=== PATIENT | female | born 1990 | race Caucasian/White ===

== ENCOUNTER 2024-09-15 08:02 | Inpatient (IN) ==
[2024-09-15] MEDS ORDERED: LIDOCAINE 1% LOCAL 20 ML VIAL INFIL PRN (08:42)
[2024-09-15 09:25] LABS: Hematocrit (blood only) 34.5 % (37.0-47.0); Hemoglobin 11.7 g/dl (12.0-16.0); Mean Corpuscular Hgb Conc 33.9 g/dL (32.0-36.0); Mean Corpuscular Volume 94.3 fL (80.0-100.0); Mean Platelet Volume 10.8 fL (9.4-12.4); Platelet Count 137 K/uL (130-400); RDW Coefficient of Variation 13.3 % (11.5-14.5); Red Blood Count 3.66 M/uL (4.20-5.40); White Blood Count 12.02 K/ul (4.8-10.8)
[2024-09-15] MEDS: LACTATED RINGER'S 1,000 ML IV SCH (11:28)
[2024-09-15] MEDS ORDERED: PROMETHAZINE 6.25 MG/50.25 ML BAG IV PRN (12:10)
[2024-09-15] MEDS ORDERED: ONDANSETRON INJ 2 MG/ML 2 ML VIAL IV PRN (12:10)
[2024-09-15] MEDS ORDERED: fentaNYL citrate PF 100 MCG/2 ML VIAL EPI PRN (12:10)
[2024-09-15] MEDS ORDERED: fentaNYL citrate PF 100 MCG/2 ML VIAL EPI STA (12:10)
[2024-09-15] MEDS ORDERED: NALOXONE HCL 0.4 MG/1 ML VIAL/CARP IV PRN (12:10)
[2024-09-15] MEDS ORDERED: fentANYL 2 MCG/ML BUPIVacaine 0.125%-NSS 100ML BAG EPI PRN (12:10)
[2024-09-15] MEDS ORDERED: BUPIVACAINE 0.25% PF 30 ML VIAL EPI PRN (12:10)
[2024-09-15] MEDS ORDERED: BUPIVACAINE 0.25% PF 30 ML VIAL EPI STA (12:10)
[2024-09-15] MEDS ORDERED: SODIUM CHLORIDE 0.9% PF INJ 10 ML VIAL EPI STA (12:10)
[2024-09-15] MEDS ORDERED: ePHEDrine sulfate 50 MG/ML AMP IV PRN (12:10)
[2024-09-15] MEDS ORDERED: NALOXONE HCL 1 MG in SODIUM CHLORIDE 0.9% 1,000 ML IV PRN (12:10)
[2024-09-15] MEDS ORDERED: NALBUPHINE HCL INJ 10 MG/ML AMP IV PRN (12:10)
[2024-09-15] MEDS ORDERED: LIDOCAINE 2%/EPINEPHRINE 1:200,000 20 ML PF EPI STA (12:10)
[2024-09-15] MEDS ORDERED: ROPIVACAINE 0.5% PF 5 MG/ML 20 ML VIAL EPI PRN (12:10)
[2024-09-15] MEDS ORDERED: LIDOCAINE 2% MPF LOCAL 5 ML VIAL EPI PRN (12:10)
[2024-09-15] MEDS ORDERED: SODIUM CHLORIDE 0.9% PF INJ 10 ML VIAL EPI PRN (12:10)
[2024-09-15] MEDS ORDERED: diphenhydrAMINE 50 MG/ML VIAL IV PRN (12:10)
--- NOTE | 2024-09-15 12:10 | Anesthesiology Consultation ---
Date of Service September 15, 2024 Assessment & Plan Chart Review Chart Review: Patient NOT seen in Pre Admission Testing and Acceptable Risk for Labor Epidural Consults Requested none ASA ASA2 Proposed Anesthesia Anesthesia Type: Labor Epidural Risk / Benefits Reviewed With: PT / POA / Parent / Guardian, Accepts Plan and Informed Consent Obtained History Height/Weight Height: 5 ft 6 in Weight: 63.503 kg Allergies Allergy/AdvReac Type Severity Reaction Status Date / Time No Known Allergies Allergy Verified 09/12/24 12:06 Medications Home Medications Medication Instructions Recorded Confirmed Last Taken vitamin #56-iron 35 mg 1 cap PO DAILY 09/18/23 09/15/24 09/14/24 and 5 mg-folic acid 1 mg-dha capsule choline 500 mg tablet 500 mg PO 09/15/24 09/14/24 Active Medications Generic Name Dose Route Start Last Admin Trade Name Freq PRN Reason Stop Dose Admin Lactated Ringer's 1,000 mls @ 80 mls/hr 09/15/24 09:00 09/15/24 12:09 Lr IV 09/16/24 08:59 80 mls/hr .[id number] TERESA Infusion Past Medical History Medical History (Updated 09/15/24 @ 08:16 by Alondra Adan RN) Fibroid Autoimmune disorder Joint pain, head aches, tingling Not sure of diagnosis Miscarriage Exercise / Class Metabolic Activity II 4-5 Yardwork/Stairs/Walk up hill Past Family History Family History Grandmother (Paternal) Breast cancer Grandfather (Paternal) Prostate cancer Other Cervical cancer Denies family history of Ovarian cancer Myocardial infarction Colorectal cancer Past Surgical History Surgical History Hx of wisdom tooth extraction Past Anesthesia History No Hx of Anesthesia Complications and No Family Hx of Anesthesia Complications History of PONV No Hx of PONV and No Hx of Motion Sickness Social History Smoking Status: Never smoker Hx Alcohol Use: Yes Hx Substance Use: No Physical Exam Vital Signs Last Vital Signs Temp 37.2 C 09/15/24 11:14 Pulse 80 09/15/24 12:05 Resp 20 09/15/24 11:14 BP 120/78 09/15/24 11:14 Pulse Ox 100 09/15/24 12:05 ENMT Mouth: no dentition abnormality Thyromental Distance: > or= 3.5 Finger Breadths Mallampati Class: II Neck normal visual inspection Respiratory normal respiratory effort Auscultation: lungs clear to auscultation bilaterally Cardiovascular Rate/Rhythm: regular rate and regular rhythm Psychiatric Orientation: alert Testing Laboratory Results 09/15/24 08:59
[2024-09-15] MEDS: BUPIVACAINE 0.25% PF 30 ML VIAL ONE (12:28)
[2024-09-15] MEDS: fentANYL 2 MCG/ML BUPIVacaine 0.125%-NSS 100ML BAG ONE (12:28)
[2024-09-15] MEDS: LIDOCAINE 2%/EPINEPHRINE 1:200,000 20 ML PF ONE (12:28)
[2024-09-15] MEDS: SODIUM CHLORIDE 0.9% PF INJ 10 ML VIAL ONE (12:28)
[2024-09-15] MEDS: fentaNYL citrate PF 100 MCG/2 ML VIAL ONE (12:46)
[2024-09-15] MEDS: ePHEDrine sulfate 50 MG/ML AMP ONE (12:46)
[2024-09-15] MEDS ORDERED: Nursing to Pharmacy Communication SCH (18:30)
[2024-09-15] MEDS: OXYTOCIN 30 UNITS/NSS 30 UNITS/500 ML BAG IV PRN (22:01)
--- NOTE | 2024-09-15 22:08 | Delivery Summary ---
Vaginal Delivery Summary Date of Service September 15, 2024 Vaginal Delivery Summary and 2nd Degree LAC Spontaneous vaginal delivery the patient arrived in active labor requested epidural artificial rupture of membranes and then patient progressed to full dilatation pushing baby spontaneously out in occiput anterior position there was a loose nuchal cord that was passed over the head there was thin meconium after delivery of the head the shoulders released under the symphysis pubis easily without excessive force easy delivery live vigorous female infant cord clamped and cut cord blood obtained placenta removed with traction IV Pitocin started QBL was 200 mL small second-degree tear repaired with 3-0 Vicryl sponge and instrument counts correct [facility] Vaginal Delivery Charge Delivery Type Details: and 2nd Degree LAC
[2024-09-15] MEDS ORDERED: bisacodyL 10 MG SUPP PR PRN (22:11)
[2024-09-15] MEDS ORDERED: IBUPROFEN 600 MG TAB PO PRN (22:11)
[2024-09-15] MEDS ORDERED: BENZOCAINE 20% SPRY 85 APPLN/85 GM CAN EXT PRN (22:11)
[2024-09-15] MEDS ORDERED: OXYTOCIN 30 UNITS/NSS 30 UNITS/500 ML BAG IV PRN (22:11)
[2024-09-15] MEDS ORDERED: HYDROCORTISONE ACETATE 25 MG SUPP PR PRN (22:11)
[2024-09-15] MEDS ORDERED: oxyCODONE/ACETAMINOPHEN 5mg/325mg TAB PO PRN (22:11)
--- NOTE | 2024-09-16 00:19 | Anesthesia Procedure Note ---
Date of Service September 16, 2024 Anesthesia Post Epidural Note Vital Signs Vital Signs: Temp Pulse Resp BP Pulse Ox 37.6 C H 101 H 18 114/68 96 09/15/24 21:28 09/16/24 00:16 09/15/24 21:28 09/16/24 00:08 09/16/24 00:16 Notes Mental Status: alert / awake / arousable Nausea / Vomiting: adequately controlled Pain: adequately controlled Airway Patency, RR, SpO2: stable & adequate BP & HR: stable & adequate Hydration State: stable & adequate Neuraxial Anesthesia: was administered and sensory block is resolving Anesthetic Complications: no major complications apparent and Pt Satisfied with anesthetic care Epidural: Removed without complications and With tip intact
[2024-09-16] MEDS: DIPHTHER/TETAN/PERTUS Vaccine (Tdap, Adol/Adult) 0.5mL IM ONE (00:37)
[2024-09-16 06:26] LABS: Hematocrit (blood only) 30.8 % (37.0-47.0); Hemoglobin 10.6 g/dl (12.0-16.0); Mean Corpuscular Hemoglobin 32.5 pg (25.0-34.0); Mean Corpuscular Hgb Conc 34.4 g/dL (32.0-36.0); Mean Corpuscular Volume 94.5 fL (80.0-100.0); Mean Platelet Volume 10.6 fL (9.4-12.4); Platelet Count 137 K/uL (130-400); RDW Coefficient of Variation 13.4 % (11.5-14.5); Red Blood Count 3.26 M/uL (4.20-5.40); White Blood Count 14.12 K/ul (4.8-10.8)
--- NOTE | 2024-09-16 06:44 | Obstetrical Progress Note ---
Date of Service <Chris Quiroga MD - Last Filed: 09/16/24 07:28> September 16, 2024 Assessment & Plan <Chris Quiroga MD - Last Filed: 09/16/24 07:28> (1) Supervision of elderly primigravida: (2) care and examination: Plan PPD#1 s/p term : Stable. Rh+, gbs -, ri, vitals wnl, H/H noted Continue routine care, continue OOB and ambulation, diet as tolerated Plan for DC later today <Chaitanya Archer MD, FACOG - Last Filed: 09/16/24 07:39> (1) Supervision of elderly primigravida: (2) care and examination: Subjective <Chris Quiroga MD - Last Filed: 09/16/24 07:28> Moriah is a 34 y/o female who is PPD#1 following at term. Minimal abd pain/cramping, well managed on analgesics Is voiding, tolerating meals, ambulating Having appropriate lochia Planning for exclusive . Constitutional: no fever, no chills or no sweats Respiratory: no dyspnea Cardiovascular: no chest pain, no palpitations or no calf pain Breast: no breast pain Gastrointestinal: no nausea or no vomiting Genitourinary (female): no dysuria Neurologic: no headache(s) no changes in vision, no headaches Physical Exam <Chris Quiroga MD - Last Filed: 09/16/24 07:28> General: Alert, oriented. No acute distress. Cardiac: Regular rate and rhythm, no murmurs, rubs, or gallops. Respiratory: Clear to auscultation bilaterally. No increased work of breathing. Symmetrical chest rise. No respiratory distress. Abdomen: Soft, nontender, nondistended. Bowel sounds present. Uterus: Uterine fundus firm, nontender, palpable 1 cm below the umbilicus. Lower extremities: No lower extremity edema or swelling. No deep calf pain. Results & Data <Chris Quiroga MD - Last Filed: 09/16/24 07:28> Vital Signs (Past 12 Hours) Vital Signs Temp Pulse Pulse Resp BP BP Pulse Ox 09/16/24 04:00 36.6 C 84 18 113/81 97 09/16/24 01:15 36.5 C 88 18 117/78 98 09/16/24 00:26 100 H 97 09/16/24 00:21 90 96 09/16/24 00:16 101 H 96 09/16/24 00:11 92 H 96 09/16/24 00:08 88 114/68 09/16/24 00:06 95 H 96 09/16/24 00:01 97 H 96 09/15/24 23:56 95 H 96 09/15/24 23:51 94 H 96 09/15/24 23:46 83 97 09/15/24 23:41 92 H 95 09/15/24 23:38 78 110/63 09/15/24 23:36 91 H 95 09/15/24 23:31 74 96 09/15/24 23:26 87 96 09/15/24 23:21 84 96 09/15/24 23:16 72 95 09/15/24 23:12 69 93 09/15/24 23:11 80 96 09/15/24 23:08 82 103/64 09/15/24 23:06 96 H 95 09/15/24 23:01 86 96 09/15/24 22:56 84 97 09/15/24 22:51 75 95 09/15/24 22:46 77 96 09/15/24 22:41 80 96 09/15/24 22:38 78 109/61 09/15/24 22:36 88 95 09/15/24 22:31 88 95 09/15/24 22:26 91 H 96 09/15/24 22:21 87 96 09/15/24 22:16 93 H 95 09/15/24 22:11 95 H 95 09/15/24 22:08 85 116/78 09/15/24 22:06 91 H 95 09/15/24 22:01 83 96 09/15/24 21:58 87 94 09/15/24 21:56 100 H 96 09/15/24 21:51 98 H 95 09/15/24 21:48 86 94 09/15/24 21:46 92 H 96 09/15/24 21:43 95 H 90 09/15/24 21:41 107 H 97 09/15/24 21:36 102 H 97 09/15/24 21:35 95 H 89 L 09/15/24 21:31 108 H 97 09/15/24 21:30 97 H 88 L 09/15/24 21:28 18 09/15/24 21:28 37.6 C H 18 09/15/24 21:26 112 H 98 09/15/24 21:21 84 96 09/15/24 21:19 88 88 L 09/15/24 21:15 106 H 98 09/15/24 21:12 91 H 91 09/15/24 21:10 80 97 09/15/24 21:05 80 97 09/15/24 21:03 85 88 L 09/15/24 21:00 84 97 09/15/24 20:58 96 H 89 L 09/15/24 20:55 95 H 99 09/15/24 20:51 80 92 09/15/24 20:50 79 97 09/15/24 20:46 86 89 L 09/15/24 20:45 87 98 09/15/24 20:40 96 H 87 L 09/15/24 20:35 100 H 98 09/15/24 20:32 66 09/15/24 20:32 77 112/67 93 09/15/24 20:30 84 94 09/15/24 20:26 88 89 L 09/15/24 20:25 83 96 09/15/24 20:20 87 83 L 09/15/24 20:15 80 98 09/15/24 20:11 74 89 L 09/15/24 20:10 94 H 98 09/15/24 20:05 92 H 90 09/15/24 20:00 86 98 09/15/24 19:55 93 H 97 09/15/24 19:53 83 89 L 09/15/24 19:50 86 98 09/15/24 19:45 85 92 09/15/24 19:40 83 115/59 L 86 L 09/15/24 19:39 86 92 09/15/24 19:35 75 98 09/15/24 19:30 76 99 09/15/24 19:28 76 93 09/15/24 19:26 80 118/74 09/15/24 19:25 72 100 09/15/24 19:20 71 99 09/15/24 19:15 81 100 09/15/24 19:10 36.6 C 83 18 126/78 98 09/15/24 19:05 80 99 09/15/24 19:00 86 98 09/15/24 18:55 77 09/15/24 18:55 75 125/85 99 09/15/24 18:50 93 09/15/24 18:50 88 09/15/24 18:50 84 97 09/15/24 18:45 76 100 O2 Del Method 09/16/24 04:00 Room Air 09/16/24 01:15 Room Air 09/16/24 00:26 09/16/24 00:21 09/16/24 00:16 09/16/24 00:11 09/16/24 00:08 09/16/24 00:06 09/16/24 00:01 09/15/24 23:56 09/15/24 23:51 09/15/24 23:46 09/15/24 23:41 09/15/24 23:38 09/15/24 23:36 09/15/24 23:31 09/15/24 23:26 09/15/24 23:21 09/15/24 23:16 09/15/24 23:12 09/15/24 23:11 09/15/24 23:08 09/15/24 23:06 09/15/24 23:01 09/15/24 22:56 09/15/24 22:51 09/15/24 22:46 09/15/24 22:41 09/15/24 22:38 09/15/24 22:36 09/15/24 22:31 09/15/24 22:26 09/15/24 22:21 09/15/24 22:16 09/15/24 22:11 09/15/24 22:08 09/15/24 22:06 09/15/24 22:01 09/15/24 21:58 09/15/24 21:56 09/15/24 21:51 09/15/24 21:48 09/15/24 21:46 09/15/24 21:43 09/15/24 21:41 09/15/24 21:36 09/15/24 21:35 09/15/24 21:31 09/15/24 21:30 09/15/24 21:28 09/15/24 21:28 09/15/24 21:26 09/15/24 21:21 09/15/24 21:19 09/15/24 21:15 09/15/24 21:12 09/15/24 21:10 09/15/24 21:05 09/15/24 21:03 09/15/24 21:00 09/15/24 20:58 09/15/24 20:55 09/15/24 20:51 09/15/24 20:50 09/15/24 20:46 09/15/24 20:45 09/15/24 20:40 09/15/24 20:35 09/15/24 20:32 09/15/24 20:32 09/15/24 20:30 09/15/24 20:26 09/15/24 20:25 09/15/24 20:20 09/15/24 20:15 09/15/24 20:11 09/15/24 20:10 09/15/24 20:05 09/15/24 20:00 09/15/24 19:55 09/15/24 19:53 09/15/24 19:50 09/15/24 19:45 09/15/24 19:40 09/15/24 19:39 09/15/24 19:35 09/15/24 19:30 09/15/24 19:28 09/15/24 19:26 09/15/24 19:25 09/15/24 19:20 09/15/24 19:15 09/15/24 19:10 09/15/24 19:05 09/15/24 19:00 09/15/24 18:55 09/15/24 18:55 09/15/24 18:50 09/15/24 18:50 09/15/24 18:50 09/15/24 18:45 Laboratory Results 09/16/24 06:08 Supervising Physician <Chaitanya Archer MD, FACOG - Last Filed: 09/16/24 07:39> Co-Signing Physician Notes Resident Physician Supervision Note: I interviewed and examined the patient. Discussed with Dr. Quiroga and agree with findings and plan as documented in the note. Any exceptions or clarifications are listed here: [None] Documented By: Chaitanya Archer MD, FACOG Resident Activity Tracking <Chaitanya Archer MD, FACOG - Last Filed: 09/16/24 07:39> Resident Involvement: Resident Care Provided Care Provided: OB Delivery
[2024-09-16] MEDS: DOCUSATE SODIUM 100 MG CAP PO SCH (07:40)
[2024-09-16] MEDS: PRENATAL VITAMIN 1 TAB PO SCH (07:40)
[2024-09-16] MEDS: ACETAMINOPHEN 325 MG TAB PO PRN (07:40)
[2024-09-16] MEDS: bisacodyL 5 MG TABEC PO SCH (20:06)
[2024-09-17 00:33] VITALS: RESP 18; O2SAT 97
--- NOTE | 2024-09-17 06:13 | Obstetrical Progress Note ---
Date of Service <Chris Quiroga MD - Last Filed: 09/17/24 07:34> September 17, 2024 Assessment & Plan <Chris Quiroga MD - Last Filed: 09/17/24 07:34> (1) Supervision of elderly primigravida: (2) care and examination: Plan PPD#2 s/p term : Stable. Rh+, gbs -, ri, VSS Continue routine care, continue OOB and ambulation, diet as tolerated Plan for DC later today <Gregoria Ortiz MD, FACOG - Last Filed: 09/17/24 08:02> (1) Supervision of elderly primigravida: (2) care and examination: Subjective <Chris Quiroga MD - Last Filed: 09/17/24 07:34> Moriah is a 34 y/o female who is PPD#2 following at term. Minimal abd pain/cramping, well managed on analgesics Is voiding, tolerating meals, ambulating Having appropriate lochia Planning for exclusive . Constitutional: no fever, no chills or no sweats Respiratory: no dyspnea Cardiovascular: no chest pain, no palpitations or no calf pain Breast: no breast pain Gastrointestinal: no nausea or no vomiting Genitourinary (female): no dysuria Neurologic: no headache(s) Physical Exam <Chris Quiroga MD - Last Filed: 09/17/24 07:34> General: Alert, oriented. No acute distress. Cardiac: Regular rate and rhythm, no murmurs, rubs, or gallops. Respiratory: Clear to auscultation bilaterally. No increased work of breathing. Symmetrical chest rise. No respiratory distress. Abdomen: Soft, nontender, nondistended. Bowel sounds present. Uterus: Uterine fundus firm, nontender, palpable 3 cm below the umbilicus. Lower extremities: No lower extremity edema or swelling. No deep calf pain. Results & Data <Chris Quiroga MD - Last Filed: 09/17/24 07:34> Vital Signs (Past 12 Hours) Vital Signs Temp Pulse Resp BP Pulse Ox O2 Del Method 09/17/24 00:00 36.8 C 84 18 115/81 97 Room Air 09/16/24 19:25 36.7 C 88 16 109/70 98 Room Air Supervising Physician <Gregoria Ortiz MD, FACOG - Last Filed: 09/17/24 08:02> Co-Signing Physician Notes Resident Physician Supervision Note: I was present with Dr. Quiroga during the history and exam. I discussed the case with the resident and agree with the findings and plan as documented in the note. Any exceptions or clarifications are listed here: stable, eating, voiding, no bleeding issues. ambulating without prob. abd soft 2 down nt, ext nt calves. ppd#2 s/p . will dc home. instructions reviewed. f/u 6wk pp. Documented By: Gregoria Ortiz MD, FACOG Resident Activity Tracking <Chris Quiroga MD - Last Filed: 09/17/24 07:34> Resident Involvement: Resident Care Provided Care Provided: Adult Hospital Medicine and OB Delivery
[2024-09-17 08:32] VITALS: BP 114/82; PULSE 81; TEMP 97.9
== END 2024-09-17 11:50 | disposition home or self-care (01) | DRG 807 ==
LOC: OPB 08:02 → 4S1 08:08 → 4E2 09-16 01:07